=== PATIENT | male | born 1945 | race Caucasian/White ===

== ENCOUNTER 2022-12-25 05:24 | Inpatient (IN) | payer MEDICARE ==
[~2022-12-25] VITALS: Ht 198.1 cm; Wt 135.6 kg
[2022-12-25] VITALS (12 sets, daily range): BP systolic 91–132; BP diastolic 46–76
--- NOTE | 2022-12-25 07:06 | NUR ---
ADMISSION PATIENT ARRIVED VIA EMS FROM [facility] TO PCU 12 AT 0600. PATIENT IS ALERT AND ORIENTED X3, DROWSY AND UNABLE TO PROVIDE MEANINGFUL HISTORY. PATIENT ARRIVED ON BIPAP AND TRANSITIONED TO THIS HOSPITAL'S BIPAP, SETTINGS 01/16 WITH 50% FIO2. PATIENT DENIES PAIN AND SHORTNESS OF BREATH. HYPOTENSIVE IN THE 90'S MAP ABOVE 65. A COUCH CATHETER WAS PLACED AT [facility] FOR RETENTION. GENERALIZED EDEMA. WILL CONTINUE TO MONITOR. CALL LIGHT WITHIN REACH.
--- NOTE | 2022-12-25 08:00 | NUR ---
AM NOTE: PATIENT WAKES TO VOICE AND TOUCH. ABLE TO KEEP EYES OPEN FOR BRIEF PERIODS OF TIME AND FALLS BACK ASLEEP. FOLLOWING SIMPLE COMMANDS AND MOVING EXTREMITIES EQUALLY. HELPING STAFF TURN IN BED. Q2 TURNING AND NEEDED. SKIN OVERALL PALE WITH SOME REDNESS NOTED TO COCCYX, MEPILEX IN PLACE. TELE SHOWING SB/SR WITH PAC'S. HR 50-70'S. SBP 90'S. TROPS ELEVATED. DENIES CHEST PAIN/PRESSURE/PALPITATIONS. PPP. DR. COFFEY IN TO ASSESS. ORDERS TO DC SC HEPARIN BID AND ORDER PHARAMACY CONSULT FOR HEPARIN GTT, TO DECREASE LASIX TO 20MG IV BID FROM 40 MG, AND VBG TO BE DONE AT 1200. ORDERS IN PLACE. PATIENT WEARING BIPAP SETTING 14/8 AND 60% FIO2 SATING MID 90'S. LUNGS SOUNDS DIMINISHED THROUGHOUT. OCCASIONAL COUGH. RESPIRATORY IN TO ADJUST BIPAP SETTINGS AFTER AM VBG. BOWEL TONES PRESENT. COUCH CATH IN PLACE FROM [facility]. CATH CARE COMPLETED THIS AM WITH BED BATH. CATH DRAINING CLEAR/YELLOW URINE, URINE SAMPLE SENT THIS AM. DENTAL HYGENIST IN THIS AM TO HELP WITH ORAL CARE. BIPAP REDIPORT ATTACHED FOR ORAL CARE. ACHS BLOOD SUGARS. PATIENT NOT ALERT ENOUGH AND ABLE TO COME OFF BIPAP AT THIS TIME TO EAT AND SWALLOW SAFELY. CALL LIGHT IN REACH.
[2022-12-25] MEDS ORDERED: OXYC5 PO (08:09)
[2022-12-25 08:10] LABS: Base Excess Venous 9.1 mmol/L; Bicarbonate Venous 30.5 mmol/L (24.0-30.0); PCO2 Venous 71.9 mmHg (38-42)
[2022-12-25] MEDS ORDERED: Methocarbamol500 MG PO ×2 (08:10→19:56)
[2022-12-25] MEDS ORDERED: METHOCARBAMOL1000 MG PO (08:11)
[2022-12-25] MEDS ORDERED: SOTO80 PO (08:12)
[2022-12-25] MEDS ORDERED: FURO40 PO (08:13)
[2022-12-25] MEDS ORDERED: MONT10T PO (08:13)
[2022-12-25] MEDS ORDERED: LEVSOD25 PO (08:14)
[2022-12-25 08:15] LABS: BASOPHILS ABSOLUTE AUTO 0.04 K/mm3 (0.00-0.23); BASOPHILS PERCENT AUTO 1 % (0-2); EOSINOPHILS ABSOLUTE AUTO 0.03 K/mm3 (0.00-0.68); EOSINOPHILS PERCENT AUTO 1 % (0-6); Hemoglobin 12.1 g/dL (13.5-17.5); IMMATURE GRAN ABSOLUTE AUTO 0.02 K/mm3 (0.00-0.10); IMMATURE GRAN PERCENT AUTO 0 % (0-1); LYMPHOCYTES ABSOLUTE AUTO 0.49 K/mm3 (0.84-5.20); LYMPHOCYTES PERCENT AUTO 8 % (21-46); MONOCYTES ABSOLUTE AUTO 0.66 K/mm3 (0.16-1.47); MONOCYTES PERCENT AUTO 11 % (4-13); Mean Corpuscular HGB 24.8 pg (26.0-34.0); Mean Corpuscular HGB Conc 28.8 g/dL (31.5-36.5); Mean Corpuscular Volume 86 fL (80-100); Mean Platelet Volume 9.8 fL (9.1-12.4); NEUTROPHILS ABSOLUTE AUTO 4.75 K/mm3 (1.96-9.15); NEUTROPHILS PERCENT AUTO 79 % (41-73); Platelet Count 217 K/mm3 (150-400); RDW Coefficient Variation 16.9 % (11.7-14.2); RDW Standard Deviation 53.1 fL (35.1-46.3); Red Blood Cell Count 4.88 M/mm3 (4.30-5.90); White Blood Cell Count 5.99 K/mm3 (4.00-11.30)
[2022-12-25] MEDS ORDERED: PREG150 PO ×2 (08:15→15:54)
[2022-12-25] MEDS ORDERED: XARELTO20 M1 PO (08:15)
[2022-12-25] MEDS ORDERED: MULVITA PO (08:16)
[2022-12-25] MEDS ORDERED: SENNA LAXATIVE8.6 MG PO (08:16)
[2022-12-25] MEDS ORDERED: TAMSULOSIN HCL0.4 MG PO (08:16)
[2022-12-25] MEDS ORDERED: VITAMIN D31000 UNI1 PO (08:17)
[2022-12-25] MEDS ORDERED: Cranberry425 MG PO (08:17)
[2022-12-25] MEDS ORDERED: CYAN500 PO (08:18)
[2022-12-25] MEDS ORDERED: Acetaminophen650 M1 PO (08:19)
[2022-12-25 08:39] LABS: Source, Urine Foley catheter
[2022-12-25 08:56] LABS: Alanine Aminotransfer (ALT/SGP 47 U/L (12-78); Albumin/Globulin Ratio 0.8 (0.8-1.8); Alk Phos 100 U/L (50-136); Anion Gap 4 mmol/L (6-16); Aspartate Aminotrans (AST/SGOT 39 U/L (12-37); Bilirubin, Total 0.3 mg/dL (0.1-1.0); Blood Urea Nitrogen 18 mg/dL (8-24); CO2, Blood 35 mmol/L (21-32); Calcium, Blood 8.6 mg/dL (8.5-10.1); Chloride, Blood 97 mmol/L (98-108); Globulin, Blood 3.7 g/dL (2.2-4.0); Glomerular Filtration Rate 89 (60-); Glucose, Blood 106 mg/dL (70-99); Phosphorus, Blood 5.2 mg/dL (2.5-4.9); Potassium, Blood 4.8 mmol/L (3.5-5.5); Sodium, Blood 136 mmol/L (136-145); Total Protein, Blood 6.7 g/dL (6.4-8.2)
[2022-12-25 09:10] LABS: BAND PERCENT MAN 1 % (0-8); BASOPHILS PERCENT MAN 0 % (0-2); EOSINOPHILS PERCENT MAN 0 % (0-6); LYMPHOCYTES ABSOLUTE MAN 0.77 K/mm3 (0.84-5.20); LYMPHOCYTES PERCENT MAN 13 % (21-46); METAMYELOCYTE ABSOLUTE MAN 0.05 K/mm3 (0.00-0.00); METAMYELOCYTE PERCENT MAN 1 % (0-0); MONOCYTES ABSOLUTE MAN 0.53 K/mm3 (0.16-1.47); MONOCYTES PERCENT MAN 9 % (4-13); NEUTROPHILS ABSOLUTE MAN 4.61 K/mm3 (1.96-9.15); SEG NEUTROPHILS PERCENT MAN 76 % (41-73); TOTAL CELLS COUNTED 100
[2022-12-25 09:27] LABS: Appearance, Urine Hazy (Clear); Bilirubin, Urine Neg (Neg); Blood, Urine 4+ (Neg); Color, Urine Yellow (P-Yellow); Glucose Qualitative, Urine Neg (Neg); Ketones, Urine Neg (Neg); Leukocyte Esterase, Urine 3+ (Neg); Nitrite, Urine Neg (Neg); Protein, Urine 2+ (Neg); Urobilinogen, Urine NORM (Normal)
[2022-12-25 09:54] LABS: Red Blood Cells, Urine 25-50 /hpf (0-2); White Blood Cells, Urine 25-50 /hpf (0-5)
[2022-12-25 09:55] LABS: Bacteria Few /hpf; Mucus Light (0-Heavy); Squamous Epithelial Cells Rare /hpf (Few)
[2022-12-25 10:14] LABS: International Normalized Ratio 1.39; Prothrombin Time Results 14.3 Sec (9.7-11.5)
[2022-12-25 10:18] LABS: Anti-Xa UFH, PHA Monitoring >1.50 IU/mL
--- NOTE | 2022-12-25 10:34 | NUR ---
PAIGE: HOME: [phone] CELL: [phone] CALLED THIS AM, THIS RN PROVIDED UPDATE. ABLE TO REPORT HOME MEDICATIONS OVER PHONE, MED REC COMPLETED AND DR. COFFEY AWARE. PLANS TO COME FROM [facility] LATER THIS AFTERNOON TO VISIT . REPORTS BELL'S BASELINE ALERT AND ORIENTED, EATING WNL, ON ROOM AIR, NO HISTORY OF DM AND DOES NOT TAKE BLOOD SUGARS AT HOME, MULTIPLE BACK SURGERIES, AND RECENT LEFT FEMUR FRACTURE AND REPAIR ON August2022. REPORTS PATIENT WORKING WITH PHYISCAL THERAPY AT HOME AND THIS LAST FRIDAY BEING THE FIRST TIME HE WAS ABLE TO USE WALKER AND TAKE A FEW STEPS. ALSO REPORTS ISSUES WITH URINARY RETENTION AND PATIENT HAVING CHRONIC COUCH X1 MONTH AT HOME, HOME COUCH WAS REMOVED LAST FRIDAY. NEW COUCH [facility]AC[facility] TO [facility]SPORT.
--- NOTE | 2022-12-25 11:21 | NUR ---
PATIENT ABLE TO COME OFF BIPAP AND BE PLACED ON HIGH FLOW AT 35 L/MIN AND 45% FIO2 FOR SHORT PERIOD OF TIME. THIS RN ABLE TO COMMUNICATE BETTER WITH PATIENT. PATIENT ABLE TO TELL ME NAME, , PLACE, WIFES NAME, AND OTHER NEEDS. PERRALEJANDRA. ORAL CARE COMPLETED BY DENTAL HYGENIST AGAIN. PATIENT MAINTAINING ALERTNESS FOR A FEW MINUTES BEFORE FALLING BACK ASLEEP. ABLE TO TAKE A COUPLE SIPS OF WATER, NO SWALLOWING ISSUES NOTED. WILL CONTINUE TO ASSESS TO SEE IF PATIENT CAN START EATING SOLIDS.
--- NOTE | 2022-12-25 12:08 | NUR ---
PATIENT AWAKE AND ALERT, EATING LUNCH AT THIS TIME. NO SWALLOWING ISSUES NOTED. MAINTAINING SATURATIONS ON HIGH FLOW AT 35L AND 45% FIO2. NEW IV PLACED AND HEPARIN GTT STARTED PER EMAR.
[2022-12-25 12:17] LABS: Base Excess Venous 11.9 mmol/L; Bicarbonate Venous 31.2 mmol/L (24.0-30.0); PCO2 Venous 88.5 mmHg (38-42); pH Blood Venous 7.25 (7.34-7.37)
--- NOTE | 2022-12-25 13:01 | NUR ---
AFTERNOON VBG WORSENING. BIPAP BACK ON. DR. COFFEY AWARE OF VBG AND TROP RESULTS ORDERS FOR VBG AT 1600.
--- NOTE | 2022-12-25 14:23 | NUR ---
ECHO BEING DONE AT THIS TIME
[2022-12-25 16:10] LABS: Base Excess Venous 11.6 mmol/L; Bicarbonate Venous 32.8 mmol/L (24.0-30.0); pH Blood Venous 7.33 (7.34-7.37)
--- NOTE | 2022-12-25 17:25 | NUR ---
SHIFT SUMMARY: SEE PREVIOUS NOTES FOR UPDATES THROUGHOUT DAY. PATIENT REMAINS ALERT AND ORIENTED, DROWSY AT TIMES. SLEEPING MOST OF SHIFT ON BIPAP WITH OCCASIONAL BREAKS. RT IN THROUGHOUT DAY ADJUSTING SETTINGS. VBG IMPROVING THROUGHOUT DAY. MANDY AT BEDSIDE. TELE CONTINUES TO SHOW SB/SR WITH HR 50-70'S. SBP IN THE 90'S. COUCH CATH IN PLACE DRAINING CLEAR/YELLOW URINE. SMALL AMOUNT OF PO INTAKE TODAY DUE TO BIPAP DEPEND. PATIENT ABLE TO TAKE BREAK DURING LUNCH. ACHS BLOOD SUGARS STABLE. HEPARIN GTT CONTINUES PER EMAR. ABX INFUSED. Q2 TURNING AND NEEDED. CALL LIGHT IN REACH. PATIENT SLEEPING AT THIS TIME, AT BEDSIDE.
[2022-12-25] MEDS ORDERED: FOLI1 PO (20:03)
[2022-12-25] MEDS ORDERED: VISBIOME 112.51 EACH PO (20:04)
[2022-12-26] VITALS (7 sets, daily range): BP systolic 107–132; BP diastolic 66–84
[2022-12-26 01:14] LABS: BASOPHILS ABSOLUTE AUTO 0.01 K/mm3 (0.00-0.23); BASOPHILS PERCENT AUTO 0 % (0-2); EOSINOPHILS PERCENT AUTO 0 % (0-6); Hematocrit 38.8 % (37.0-53.0); Hemoglobin 11.4 g/dL (13.5-17.5); IMMATURE GRAN ABSOLUTE AUTO 0.01 K/mm3 (0.00-0.10); IMMATURE GRAN PERCENT AUTO 0 % (0-1); LYMPHOCYTES ABSOLUTE AUTO 0.38 K/mm3 (0.84-5.20); LYMPHOCYTES PERCENT AUTO 9 % (21-46); MONOCYTES ABSOLUTE AUTO 0.13 K/mm3 (0.16-1.47); MONOCYTES PERCENT AUTO 3 % (4-13); Mean Corpuscular HGB 25.1 pg (26.0-34.0); Mean Corpuscular HGB Conc 29.4 g/dL (31.5-36.5); Mean Corpuscular Volume 85 fL (80-100); NEUTROPHILS ABSOLUTE AUTO 3.65 K/mm3 (1.96-9.15); NEUTROPHILS PERCENT AUTO 87 % (41-73); Platelet Count 187 K/mm3 (150-400); RDW Coefficient Variation 16.6 % (11.7-14.2); RDW Standard Deviation 52.4 fL (35.1-46.3); Red Blood Cell Count 4.55 M/mm3 (4.30-5.90); White Blood Cell Count 4.18 K/mm3 (4.00-11.30)
[2022-12-26 01:52] LABS: Magnesium, Blood 2.2 mg/dL (1.6-2.4)
[2022-12-26 02:01] LABS: Albumin, Blood 2.8 g/dL (3.4-5.0); Albumin/Globulin Ratio 0.7 (0.8-1.8); Bilirubin, Total 0.3 mg/dL (0.1-1.0); Bun/Creatinine Ratio 24.8 (12.0-20.0); Calcium, Blood 8.4 mg/dL (8.5-10.1); Creatinine, Blood 0.85 mg/dL (0.60-1.20); Globulin, Blood 3.8 g/dL (2.2-4.0); Potassium, Blood 4.5 mmol/L (3.5-5.5); Total Protein, Blood 6.6 g/dL (6.4-8.2)
--- NOTE | 2022-12-26 06:26 | NUR ---
SHIFT SUMMARY PATIENT ALERT AND ORIENTED X4. MEDICATED PER EMAR FOR PAIN. OBTAINED TWO ONE TIME ORDERS FOR 500 MG METHOCARBAMOL PER PATIENT REQUEST THAT IS PART OF THE PAIN REGIMEN THAT THE PATIENT TAKES AT HOME. PATIENT REPORTS HAVING CHRONIC BACK PAIN FROM PAST SURGERIES. PATIENT CONTINUED ON BIPAP OVERNIGHT BUT DEVELOPED LEFT SIDED CHEST PAIN, PATIENT DESCRIBED A DULL, NON-RADIATING PAIN THAT INCREASED IN INTENSITY UPON DEEP INSPIRATION. ADMINISTERED TRAMADOL AND HAD RESPIRATORY THERAPIST ASSESS THE PATIENT. TRAMADOL WAS INEFFECTIVE. CALLED DR GRAVES AT 2355 TO NOTIFY HER OF THE PATIENT'S CHEST PAIN. SHE ORDERED FOR AN ADDITIONAL TROPONIN TO BE CHECKED. THIS RN ALSO OBTAINED AND EKG ON THE PATIENT. CALLED DR GRAVES BACK AT 0050 TO NOTFY HER OF THE RESULTS AND THAT THE PATIENT WAS STILL IN PAIN. THIS RN WAS TOLD TO GICE THE PATIENT HIS PRN OXYCODONE. WHEN ADMINISTERING THE OXYCODONE THE PATIENT REPORTED THAT THE PAIN GREATLY DECREASED WHEN TAKEN OFF THE BIPAP. VITAL SIGNS STABLE, SINUS KELLEN TO SINUS RHYTHM ON TELE. PATIENT DECLINED GOING BACK ON THE BIPAP THIS MORNING AFTER ADMINISTERING HIS PAIN MEDICATION AT 0522, HE IS CURRENTLY ON 5 LITERS O2 VIA NC SATING AT 91%. WILL CONTINUE TO MONITOR. CALL LIGHT WITHIN REACH.
--- NOTE | 2022-12-26 18:45 | NUR ---
SHIFT SUMMARY PT A/OX4 AND COOPERATIVE OF CARE. PT ABLE TO EXPRESS NEEDS AND CALLS APPROPIATE. VSS THORUGHOUT SHIFT WITH 02 SATS IN THE 90'S ON 5L NC. PT REPORTED CHEST PAIN ASSOCIATED WITH DEEP BREATHS AT BEGINNING OF SHIFT, SUBSIDED AROUND NOON. NO REPORT OF SOB/DYSPNEA. PT REPORTS "I FELL 100% BETTER TODAY." COUCH REMIANED IN PLACE DRAINING TO GRAVITY. PT HEPARIN GTT STOPPED PER ORDERS, PT TO BEGIN HOME MED REGIMEN TOMORROW. NO ACUTE EVENTS.
[2022-12-27 03:26] VITALS: BP 110/63
[2022-12-27 03:57] LABS: Hematocrit 39.7 % (37.0-53.0); Hemoglobin 11.7 g/dL (13.5-17.5); Mean Corpuscular HGB 24.8 pg (26.0-34.0); Mean Corpuscular HGB Conc 29.5 g/dL (31.5-36.5); Mean Corpuscular Volume 84 fL (80-100); NRBC ABSOLUTE 0.03 K/mm3 (0.00-0.02); NRBC Auto 0.4 /100 WBC (0.0-0.2); Platelet Count 220 K/mm3 (150-400); RDW Coefficient Variation 16.8 % (11.7-14.2); RDW Standard Deviation 50.8 fL (35.1-46.3); Red Blood Cell Count 4.71 M/mm3 (4.30-5.90); White Blood Cell Count 7.03 K/mm3 (4.00-11.30)
[2022-12-27 04:17] LABS: Bun/Creatinine Ratio 31.4 (12.0-20.0); Calcium, Blood 8.6 mg/dL (8.5-10.1); Creatinine, Blood 0.96 mg/dL (0.60-1.20); Potassium, Blood 4.5 mmol/L (3.5-5.5)
--- NOTE | 2022-12-27 06:06 | NUR ---
SHIFT SUMMARY PATIENT ALERT AND ORIENTED X4. MEDICATED PER EMAR FOR PAIN. PATIENT HAD NO COMPLAINTS OF CHEST PAIN OR SHORTNESS OF BREATH. CONTINUES ON 5 LITERS O2 VIA NC. SINUS RHYTHM TO SINUS KELLEN ON TELE, BLOOD PRESSURE STABLE. NO ACUTE ISSUES NOTED OVERNIGHT. WILL CONTINUE TO MONITOR. CALL LIGHT WITHIN REACH.
[2022-12-27 07:40] VITALS: BP 118/69
[2022-12-27 14:21] VITALS: BP 110/63
[2022-12-27 17:37] LABS: Vancomycin, Trough 19.2 ug/mL (5.0-10.0)
--- NOTE | 2022-12-27 18:34 | NUR ---
SHIFT SUMMARY PT A/OX4 AND COOPERATIVE OF CARE. PT HR TOUCHED DOWN TO HIGH 30'S A COUPLE OF TIMES DURING SHIFT, PT ASYMPTOMTIC. OTHER VSS THROUGHOUT SHIFT WITH O2 STS IN THE HIGH 80'S TO 90'S ON 2-5 L NC. PT TITRATED DOWN TO 2L, PT RA AT BASELINE. NO REPORT OF CHEST PAIN/PRESSURE THROUGHOUT SHIFT. NO REPORT OF SOB/DYSPNEA THROUGHOUT SHIFT. COUCH REMAINED IN PLACE DRAINING TO GRAVITY. PT CULTURES REQUESTED FROM [facility], URINE FAX ARRIVED FROM [facility] AND IN CHART.
[2022-12-27 20:00] VITALS: BP 105/68
--- NOTE | 2022-12-27 22:13 | NUR ---
ASSUMPTION OF CARE THIS RN ASSUMED CARE OF PT AT 1915; REPORT FROM NICOLE JOHNSON. PT A&O X4; AWAKE IN THE ROOM, WATCHING TV. PT PLEASANT AND COOPERATIVE WITH CARE. VSS; SEE VITALS. PT DENIES DIZZINESS, LIGHTHEADNESS, SOB OR CP/PRESSURE. PT CURRENTLY ON 3 L NC, SPO2 90%. PT REPORTS CHRONIC PAIN IN LOWER BACK 09/19. MEDICATION PER EMAR. COUCH CATHETER IN PLACE AND DRAINING YELLOW URINE TO GRAVITY. CATH CARE COMPLETED. PT DENIES ANY NEEDS OR CONCERNS AT THIS TIME. CALL LIGHT IN REACH. THIS RN CALLED HOSP D/T HR BRING 55 AND SBP 105 TO CLARIFY IF HOSPITALIST WANTED THIS RN TO HOLD 2100 SOTALOL. HOSPITALIST AGREED TO HOLD SOTALOL FOR PM SHIFT D/T VS.
[2022-12-28 04:42] VITALS: BP 133/76; BP 33/76
--- NOTE | 2022-12-28 05:27 | NUR ---
SHIFT SUMMARY PT REMAINS A&O X4. VSS; ALTHOUGH HR DID DROP INTO 30'S AGAIN. PT ASYMPTOMATIC. HR MOSTLY SUSTAINING 45 - 50'S, BP STABLE. PT DENIES CP/PRESSURE, SOB, DIZZINESSS. 2100 SOTALOL HELD PER MD ORDER; SEE NOTE. PT ON 2 - 4 L 02 VIA NC; SPO2 DECREASES INTO 70'S WHILE ASLEEP. PT CURRENTLY ON 4 L WHILE SLEEPING. PT C/O OF GENERAL, CHRONIC PAIN. MEDICATION PER EMAR, WELL REPOSITIIONING AND UNINTERRRUPTED REST. COUCH IN PLACE AND DRAINING TO GRAVITY. NO BM THIS SHIFT. CALL LIGHT IN REACH, WILL UPDATE ONCOMING RN.
[2022-12-28 08:32] VITALS: BP 106/56
[2022-12-28 15:01] VITALS: BP 124/71
[2022-12-28] MEDS ORDERED: Prednisone20 MG PO (15:31)
[2022-12-28] MEDS ORDERED: CEPH500 PO (15:32)
[2022-12-28] MEDS ORDERED: METO25ER PO (15:32)
--- NOTE | 2022-12-28 17:45 | NUR ---
SHIFT SUMMARY this rn assumed care at 0700. vital signs have been stable throughout the shift. patient is alert and oriented x4. patient left pupil is smaller than right, and patient states this is normal and has seen vision doctors. patient is able to make needs knonw and calls appropriately. mata in place draining with gravity, yellow coloration. see shift assessment for further detials. patient worked with physical therapy today. hack in to see patient. patient had a home o2 eval. plan is for patient to be discharged tomorrow with home oxygen and transport is set up. discharge is complete and in folder. gas charger gabe called in medications to [facility] in [facility]. plan of care is up to date. is updated on plan.
[2022-12-28 20:00] VITALS: BP 131/84
[2022-12-29 04:00] VITALS: BP 132/85
--- NOTE | 2022-12-29 06:22 | NUR ---
SHIFT SUMMARY THIS RN ASSUMED CARE OF PT AT 1915. PT AWAKE IN HIS ROOM, A&O X4. PLEASANT AND COOPERATIVE WITH CARE. VSS THROUGHOUT SHIFT. PT AFEBRILE, REMAINS ON 4 L OF O2 VIA NC. PT HAD AN UNEVENTFUL NIGHT. MEDICATION FOR CHRONIC PAIN PER EMAR. COUCH IN PLACE AND DRAINING TO GRAVITY. NO BM THIS SHIFT, ATTENDS IN PLACE. PT REPOSITIONS INDEPENDENTLY. PT EXCITED AND ANXIOUS TO "GET HOME". PT RESTED WELL T/O SHIFT, CALL LIGHT IN REACH. WILL UPDATE ONCOMING RN
--- NOTE | 2022-12-29 07:30 | NUR ---
ASSUMED CARE PATIENT LYING IN BED AWAKE TALKING ON THE PHONE. GREETS STAFF UPON ENTERING ROOM AND ASKS QUESTIONS REGARDING CARE AND DISCHARGE. PIV SALINE LOCKED. 4LPM VIA NC IN PLACE WITH SPO2 95-97%. COUCH PATENT AND DRAINING TO GRAVITY. NO FAMILY OR VISITORS AT BEDSIDE. BEDSIDE SHIFT REPORT COMPLETED WITH NICOLE BUTLER.
[2022-12-29 09:26] VITALS: BP 117/61
--- NOTE | 2022-12-29 09:45 | NUR ---
DISCHARGE PATIENT DISCHARGED VIA AMBULANCE WC TRANSPORT TO HOME WITH 2 OXYGEN TANKS. PLACED ON 4LPM VIA [place] AND ALL BELONGINGS SENT WITH PATIENT. CHANDU PIV REMOVED AND COUCH CATHETER REMAINS IN PLACE PER PATIENT REQUEST. EDUCATED PATIENT THAT CATHETER POSES INFECTION RISK AND SHOULD BE REMOVED PRIOR TO DISCHARGE. PATIENT STATED THAT HOME HEALTH NURSE WOULD REMOVE IT UPON ARRIVAL HOME. AWARE.
== END 2022-12-29 09:44 | disposition home or self-care (01) | DRG 698 ==
LOC: PCU 05:24
PROVIDERS: Internal Medicine; Student in an Organized Health Care Education/Training Program; ADMIT Internal Medicine
PROC: 5A09357 Assistance with Respiratory Ventilation, Less than 24 Consecutive Hours, Continuous Positive Airway Pressure (ICD-10-PCS; principal; 2022-12-25)
PROC: 3E03329 Introduction of Other Anti-infective into Peripheral Vein, Percutaneous Approach (ICD-10-PCS; 2022-12-25)
DX: T83.511A Infection and inflammatory reaction due to indwelling urethral catheter, initial encounter (principal); A41.51 Sepsis due to Escherichia coli [E. coli]; G92.8 Other toxic encephalopathy; J96.21 Acute and chronic respiratory failure with hypoxia; J96.22 Acute and chronic respiratory failure with hypercapnia; I50.31 Acute diastolic (congestive) heart failure; J44.1 Chronic obstructive pulmonary disease with (acute) exacerbation; R77.8 Other specified abnormalities of plasma proteins; I27.81 Cor pulmonale (chronic); N39.0 Urinary tract infection, site not specified; G89.29 Other chronic pain; F11.90 Opioid use, unspecified, uncomplicated; Z66 Do not resuscitate; R33.9 Retention of urine, unspecified; Z11.52 Encounter for screening for COVID-19; I48.0 Paroxysmal atrial fibrillation; Z87.81 Personal history of (healed) traumatic fracture; Z98.890 Other specified postprocedural states
CPT/HCPCS: 36415; 71045; 80048; 80053; 80069; 80202; 81001; 82803; 82947; 83735; 83880; 84443; 84484; 85025; 85027; 85520; 85610; 85730; 87040; 87086; 93005; 93010; 93306; 94640; 94660; 94664; 94760; 94761; 94762; 97110; 97162; 97530; A9270; J0696; J1644; J1940; J2930; J3370; J7050; J7512